=== PATIENT | female | born 1965 | race Caucasian/White ===

== ENCOUNTER 2021-01-25 09:53 | Inpatient (IN) | payer OTHER ==
[~2021-01-25] VITALS: Ht 166.4 cm; Wt 80.3 kg
[2021-01-25] MEDS ORDERED: OXYC1TAB14 PO (10:10)
[2021-01-25 10:11] VITALS: BP 98/58
[2021-01-25] MEDS ORDERED: PLEASE ENTER ALLERGIES MC SCH (11:00)
[2021-01-25] MEDS ORDERED: PLEASE ENTER HEIGHT AND WEIGHT MC SCH (11:00)
[2021-01-25] MEDS ORDERED: HEPARIN 1,000 UNITS/ML, 10ML IV ONE (11:30)
[2021-01-25] MEDS ORDERED: KETOROLAC 15 MG/1ML IVPush PRN (11:30)
[2021-01-25 12:25] LABS: MEAN CORPUSCULAR HEMOGLOBIN 35.1 pg (27.0-34.8); MEAN CORPUSCULAR HGB CONC 34.4 g/dL (32.4-35.8); MEAN PLATELET VOLUME 8.6 fL (7.4-10.4); PLATELET COUNT 128 x10^3/uL (130-400); RED BLOOD COUNT 2.48 x10^6/uL (3.82-5.3)
[2021-01-25 12:28] LABS: ALANINE AMINOTRANSFERASE 25 U/L (12-78); ALBUMIN 3.2 g/dL (3.4-5.0); ANION GAP 3 mmol/L (5-15); CALCIUM 8.1 mg/dL (8.5-10.1); CHLORIDE 103 mmol/L (98-107); CREATININE 0.64 mg/dL (0.55-1.02)
[2021-01-25 12:29] LABS: ALKALINE PHOSPHATASE 89 U/L (45-117); BILIRUBIN,TOTAL 0.7 mg/dL (0.2-1.0); TOTAL PROTEIN 6.1 g/dL (6.4-8.2)
[2021-01-25] MEDS ORDERED: ONDA-89 PO (12:34)
[2021-01-25 13:57] LABS: ANISOCYTOSIS 1+; BANDS%(MANUAL) 7 % (0-7); LYMPH#(MANUAL) 1.94 x10^3/uL (1-3.4); LYMPHS% (MANUAL) 45 % (22-44); MONOS#(MANUAL) 0.43 x10^3/uL (0.3-2.7); MONOS% (MANUAL) 10 % (2-9); OVALOCYTES 1+; SEG#(MANUAL) 1.63 x10^3/uL (1.8-6.8); SEGS% (MANUAL) 38 % (42-75)
[2021-01-25] MEDS ORDERED: DULO40CA2 PO (13:57)
[2021-01-25 13:58] LABS: <PLATELET ESTIMATE> DECREASED; <PLT MORPHOLOGY> NORMAL PLT MORPH; TOXIC GRAN 1+
[2021-01-25 14:20] LABS: INTERNATIONAL NORMALIZED RATIO 1.08 (0.93-1.1); PROTHROMBIN TIME 11.5 Seconds (9.6-11.5)
[2021-01-25] MEDS: HEPARIN 25,000 UNITS/250ML PMX 250 ML IV PRN (14:20)
[2021-01-25] MEDS ORDERED: HEPARIN 5,000 UNITS/ML, 1ML IV ONE ×2 (14:30→22:00)
[2021-01-25 16:05] VITALS: BP 93/56
[2021-01-25] MEDS: morphine SULFATE 10 MG/ML, 1ML IVPush PRN ×2 (16:26→21:40)
[2021-01-25] MEDS: ONDANSETRON ODT 4 MG PO PRN ×2 (16:26→21:45)
[2021-01-25] MEDS: OXYcodone/APAP 10/325MG TABLET PO PRN (17:36)
[2021-01-25 18:41] VITALS: BP 99/54
[2021-01-26] MEDS: OXYcodone/APAP 10/325MG TABLET PO PRN ×2 (00:10→06:16)
[2021-01-26 00:11] VITALS: BP 94/54
[2021-01-26] MEDS ORDERED: KETOROLAC 30 MG/1 ML ONE (05:39)
[2021-01-26] MEDS ORDERED: KETOROLAC 30 MG/1 ML IVPush PRN (06:00)
[2021-01-26 07:03] VITALS: BP 100/65
[2021-01-26] MEDS: ONDANSETRON ODT 4 MG PO PRN (11:30)
[2021-01-26 13:10] VITALS: BP 91/57
[2021-01-26] MEDS: POTASSIUM CHLORIDE 20 MEQ TAB.ER.PRT PO SCH ×2 (13:34→16:59)
[2021-01-26 18:17] VITALS: BP 102/62
[2021-01-26] MEDS ORDERED: ACETAMINOPHEN 325 MG TABLET PO ONE (19:00)
[2021-01-26] MEDS: HEPARIN 25,000 UNITS/250ML PMX 250 ML IV PRN (19:02)
[2021-01-26 19:43] LABS: MICROSCOPIC NOT IND
[2021-01-26] MEDS ORDERED: WARFARIN 10 MG TABLET PO-COUM SCH (20:00)
[2021-01-26 20:31] LABS: INTERNATIONAL NORMALIZED RATIO 1.02 (0.93-1.1); PROTHROMBIN TIME 10.9 Seconds (9.6-11.5)
[2021-01-26] MEDS ORDERED: WARFARIN 5 MG TABLET PO-COUM ONE (20:55)
[2021-01-27 01:30] VITALS: BP 105/66
[2021-01-27 06:26] LABS: MEAN CORPUSCULAR HEMOGLOBIN 35.5 pg (27.0-34.8); MEAN CORPUSCULAR HGB CONC 34.3 g/dL (32.4-35.8); MEAN PLATELET VOLUME 8.2 fL (7.4-10.4); PLATELET COUNT 155 x10^3/uL (130-400); RED BLOOD COUNT 2.55 x10^6/uL (3.82-5.3); RED CELL DISTRIBUTION WIDTH 23.5 % (9.6-15.2)
[2021-01-27 06:28] LABS: CHLORIDE 106 mmol/L (98-107)
[2021-01-27 06:36] VITALS: BP 114/74
[2021-01-27 06:43] LABS: ANION GAP 2 mmol/L (5-15); CALCIUM 8.5 mg/dL (8.5-10.1); CREATININE 0.63 mg/dL (0.55-1.02)
[2021-01-27 07:02] LABS: BAND#(MANUAL) 1.04 x10^3/uL; BANDS%(MANUAL) 10 % (0-7); LYMPHS% (MANUAL) 25 % (22-44); METAMYELOCYTES# (MANUAL) 0.21 x10^3/uL (0-0); METAMYELOCYTES% (MANUAL) 2 % (0-1); MONOS#(MANUAL) 1.35 x10^3/uL (0.3-2.7); MONOS% (MANUAL) 13 % (2-9); MYELOCYTES# (MANUAL) 0.31 x10^3/uL (0-0); MYELOCYTES% (MANUAL) 3 % (0-0); SEG#(MANUAL) 4.89 x10^3/uL (1.8-6.8); SEGS% (MANUAL) 47 % (42-75)
[2021-01-27 07:03] LABS: ANISOCYTOSIS 1+; POLYCHROMASIA 1+; TOXIC GRAN 1+
[2021-01-27 07:04] LABS: <PLATELET ESTIMATE> ADEQUATE; <PLT MORPHOLOGY> NORMAL PLT MORPH; OVALOCYTES 1+
[2021-01-27] MEDS: POTASSIUM CHLORIDE 20 MEQ TAB.ER.PRT PO SCH ×2 (07:42→16:49)
[2021-01-27] MEDS: KETOROLAC 10MG TABLET PO PRN ×2 (07:55→15:47)
[2021-01-27 12:21] VITALS: BP 99/65
[2021-01-27] MEDS ORDERED: WARFARIN 5 MG TABLET PO-COUM SCH (18:00)
[2021-01-27 20:00] VITALS: BP 98/57
[2021-01-27] MEDS: HEPARIN 25,000 UNITS/250ML PMX 250 ML IV PRN (20:54)
[2021-01-28 02:44] VITALS: BP 100/68
[2021-01-28] MEDS: KETOROLAC 10MG TABLET PO PRN ×3 (02:44→22:00)
[2021-01-28 06:29] VITALS: BP 106/58
[2021-01-28] MEDS: POTASSIUM CHLORIDE 20 MEQ TAB.ER.PRT PO SCH ×2 (08:00→17:38)
[2021-01-28 08:03] LABS: INTERNATIONAL NORMALIZED RATIO 1.21 (0.93-1.1); PROTHROMBIN TIME 12.8 Seconds (9.6-11.5)
[2021-01-28 12:55] VITALS: BP 106/70
[2021-01-28] MEDS: HEPARIN 25,000 UNITS/250ML PMX 250 ML IV PRN (16:44)
[2021-01-28] MEDS: WARFARIN 5 MG TABLET PO-COUM SCH (17:39)
[2021-01-28 18:59] VITALS: BP 104/55
[2021-01-29 01:58] VITALS: BP 103/66
[2021-01-29] MEDS: OXYcodone/APAP 5/325MG TABLET PO PRN ×3 (04:43→22:52)
[2021-01-29 06:11] LABS: INTERNATIONAL NORMALIZED RATIO 1.41 (0.93-1.1); PROTHROMBIN TIME 14.8 Seconds (9.6-11.5)
[2021-01-29 06:12] LABS: PARTIAL THROMBOPLASTIN TIME > 95 Seconds (25-31)
[2021-01-29 06:37] VITALS: BP 102/67
[2021-01-29] MEDS: KETOROLAC 10MG TABLET PO PRN (08:48)
[2021-01-29] MEDS: POTASSIUM CHLORIDE 20 MEQ TAB.ER.PRT PO SCH ×2 (08:48→17:33)
[2021-01-29 13:12] VITALS: BP 114/79
[2021-01-29] MEDS: ONDANSETRON ODT 4 MG PO PRN (13:17)
[2021-01-29] MEDS: HEPARIN 25,000 UNITS/250ML PMX 250 ML IV PRN (14:05)
[2021-01-29 14:57] LABS: MEAN CORPUSCULAR HEMOGLOBIN 35.2 pg (27.0-34.8); MEAN CORPUSCULAR HGB CONC 33.3 g/dL (32.4-35.8); MEAN PLATELET VOLUME 7.8 fL (7.4-10.4); PLATELET COUNT 129 x10^3/uL (130-400); RED BLOOD COUNT 2.57 x10^6/uL (3.82-5.3); RED CELL DISTRIBUTION WIDTH 23.7 % (9.6-15.2)
[2021-01-29 15:34] LABS: ANISOCYTOSIS 1+; BAND#(MANUAL) 1.42 x10^3/uL; BANDS%(MANUAL) 11 % (0-7); LYMPH#(MANUAL) 2.32 x10^3/uL (1-3.4); LYMPHS% (MANUAL) 18 % (22-44); METAMYELOCYTES# (MANUAL) 0.26 x10^3/uL (0-0); METAMYELOCYTES% (MANUAL) 2 % (0-1); MONOS#(MANUAL) 0.52 x10^3/uL (0.3-2.7); MONOS% (MANUAL) 4 % (2-9); POLYCHROMASIA 1+; SEG#(MANUAL) 8.39 x10^3/uL (1.8-6.8); SEGS% (MANUAL) 65 % (42-75)
[2021-01-29 15:35] LABS: <PLATELET ESTIMATE> ADEQUATE; <PLT MORPHOLOGY> NORMAL PLT MORPH
[2021-01-29] MEDS: WARFARIN 5 MG TABLET PO-COUM SCH (17:32)
[2021-01-29 18:43] VITALS: BP 93/62
[2021-01-30 01:43] VITALS: BP 97/53
[2021-01-30 06:26] VITALS: BP 104/60
[2021-01-30] MEDS: POTASSIUM CHLORIDE 20 MEQ TAB.ER.PRT PO SCH ×2 (08:15→16:33)
[2021-01-30] MEDS: KETOROLAC 10MG TABLET PO PRN ×2 (09:02→14:39)
[2021-01-30 09:18] LABS: INTERNATIONAL NORMALIZED RATIO 2.06 (0.93-1.1); PROTHROMBIN TIME 21.3 Seconds (9.6-11.5)
[2021-01-30 09:20] LABS: PARTIAL THROMBOPLASTIN TIME > 95 Seconds (25-31)
[2021-01-30 12:40] VITALS: BP 92/61
[2021-01-30] MEDS ORDERED: WARFARIN 5 MG TABLET PO-COUM SCH (18:00)
== END 2021-01-30 17:52 | disposition home or self-care (01) | DRG 300 ==
LOC: 4NW 09:53
PROVIDERS: ADMIT Specialist; ATTEND Specialist
DX: I82.411 Acute embolism and thrombosis of right femoral vein (principal); C56.9 Malignant neoplasm of unspecified ovary; D68.51 Activated protein C resistance; E87.6 Hypokalemia; Z79.01 Long term (current) use of anticoagulants; Z79.899 Other long term (current) drug therapy
CPT/HCPCS: 36415; 80048; 80053; 81003; 85025; 85520; 85610; 85730; 87040; G0378; J1644; J1885; Q0162; J2270